=== PATIENT | female | born 1985 | race Caucasian/White ===

== ENCOUNTER 2023-09-13 05:30 | Emergency (ER) | payer MEDICAID ==
[~2023-09-13] VITALS: Ht 160 cm; Wt 75.0 kg
[2023-09-13 08:17] VITALS: BP 110/74; PULSE 71; RESP 18; TEMP 97.6; O2SAT 99
[2023-09-13] MEDS ORDERED: MELO7.5T7 PO (08:27)
[2023-09-13] MEDS: HYDROcodone-ACET 7.5/325MG TAB PO ONE (08:31)
== END 2023-09-13 09:07 | disposition home or self-care (01) ==
LOC: ER 05:30
DX: M19.011 Primary osteoarthritis, right shoulder (principal); M77.8 Other enthesopathies, not elsewhere classified
CPT/HCPCS: 73030

== ENCOUNTER 2024-06-07 16:08 | Emergency (ER) | payer MEDICAID ==
[~2024-06-07] VITALS: Ht 162.6 cm; Wt 77.3 kg
[~2024-06-07 16:08] MED LIST: MELO7.5T7 PO
--- NOTE | 2024-06-07 16:38 | ED.PDOC ---
Musculoskeletal HPI Comments 38 year old female presents to the ED with a chief complaint of RT thigh pain onset 1 week. Patient states she was playing sports, believes she pulled groin muscle, has been experiencing pain since, worsen with movement. Patient was seen at [place] 1 week ago, was prescribed Motrin, was told to apply hot compressions, with no improvement of symptoms. Denies any PMHx as well as chest pain, LOC, shortness of breath, dizziness, nausea, vomiting, diarrhea, numbness/tingling of extremities. No other symptoms or modifying factors present at this time. Time Seen by MD: 16:18 Primary Care Provider: FROY Siu Notes: Medications, Allergies Allergies: Coded Allergies: NO KNOWN ALLERGIES (Unverified , 11/10/10) Home Meds Active Scripts Meloxicam (Meloxicam) 7.5 Mg Tab, 1 TAB PO DAILYP PRN for 30 Days, #30 TAB 0 Refills Prov:PIERRE GAO Rc YOUNG 09/13/23 Information Source: Patient Mode of Arrival: Ambulatory Location: Right Extremity Location: Thigh Timing: Weeks Prehospital treatment: Pain Meds (motrin) Severity: Moderate Able to Move Extremity: Yes Pain: Moderate Mechanism: Spontaneous Circumstances: Sporting Onset of Symptoms: After Trauma Symptoms: Pain DVT Risk Factors: NONE Associated signs and symptoms: Thigh pain (RT) Past Medical History PAST MEDICAL HISTORY: Denies Surgical History: Denies all surgeries BALLISTICS PROFESSOR History: No Pertinent BALLISTICS PROFESSOR History Family History Family History: Reviewed,noncontributory to illness Social History Smoker: Non-Smoker Alcohol: Denies ETOH Use Drugs: Denies Drug Use Lives In: Home Constitutional: denies: chills, diaphoresis, fatigue, fever, malaise, sweats, weakness, others EENTM: denies: blurred vision, double vision, ear bleeding, ear discharge, ear drainage, ear pain, ear ringing, eye pain, eye redness, hearing loss, mouth pain, mouth swelling, nasal discharge, nose bleeding, nose congestion, nose pain, photophobia, tearing, throat pain, throat swelling, voice changes, others Respiratory: denies: cough, hemoptysis, orthopnea, SOB at rest, shortness of breath, SOB with excertion, stridor, wheezing, others Cardiovascular: denies: chest pain, dizzy spells, diaphoresis, Dyspnea on exertion, edema, irregular heart beat, left arm pain, lightheadedness, palpitations, PND, syncope, others Gastrointestinal: denies: abdomen distended, abdominal pain, blood streaked bowels, constipated, diarrhea, dysphagia, difficulty swallowing, hematemesis, melena, nausea, poor appetite, poor fluid intake, rectal bleeding, rectal pain, vomiting, others Genitourinary: denies: abnormal vagina bleeding, burning, dyspareunia, dysuria, flank pain, frequency, hematuria, incontinence, pain, , vagina discharge, urgency, others Neurological: denies: dizziness, fainting, headache, left sided numbness, left sided weakness, numbness, paresthesia, pre-existing deficit, right sided numbness, right sided weakness, seizure, speech problems, tingling, tremors, weakness, others Musculoskeletal: reports: others (RT thigh pain); denies: back pain, gout, joint pain, joint swelling, muscle pain, muscle stiffness, neck pain Integumetry: denies: bruises, change in color, change in hair/nails, dryness, laceration, lesions, lumps, rash, wounds, others Allergic/Immunocompromised: denies: Difficulty Healing, Frequent Infections, Hives, Itching, others Hematologic/Lymphatic: denies: anemia, blood clots, easy bleeding, easy bruising, swollen glands, others Endocrine: denies: excessive hunger, excessive sweating, excessive thirst, excessive urination, flushing, intolerance to cold, intolerance to heat, unexplained weight gain, unexplained weight loss, others Psychiatric: denies: anxiety, bipolar disorder, depression, hopeless, panic disorder, schizophrenia, sleepless, suicidal, others All Other Systems: Reviewed and Negative Physical Exam General Appearance: No Apparent Distress, Normal HEENT: Normal ENT Inspection, Pharynx Normal, TMs Normal Neck: Full Range of Motion, Non-Tender, Normal, Normal Inspection Respiratory: Chest Non-Tender, Lungs Clear, No Accessory Muscle Use, No Respiratory Distress, Normal Breath Sounds Cardiovascular: No Edema, No JVD, No Murmur, No Gallop, Normal Peripheral Pulses, Regular Rate/Rhythm Breast Exam: Deferred Gastrointestinal: No Organomegaly, Non Tender, No Pulsatile Mass, Normal Bowel Sounds, Soft Genitalia: Deferred Pelvic: Deferred Rectal: Deferred Extremities: No calf tenderness, Normal capillary refill, No pedal edema, Tender (RT thigh, able to ambulate ) Musculoskeletal : Apperance: Normal Neurologic: Alert, tire retreader II-XII nml as Tested, No Motor Deficits, Normal Affect, Normal Mood, No Sensory Deficits Cerebellar Function: Normal Reflexes: Normal Skin: Dry, Normal Color, Warm Lymphatic: No Adenopathy Was a procedure done? Was a procedure done?: No Differential Diagnosis EXT Differential Diagnosis: Deep Vein Thrombosis, Compartment Syndrome, Fracture, Dislocation X-Ray, Labs, Meds, VS Vital Signs Date Time Temp Pulse Resp B/P (MAP) Pulse Ox O2 Delivery O2 Flow Rate FiO2 06/07/24 16:15 97.5 77 18 119/76 (90) 99 97.5 X-Ray, Labs, Meds, VS Comment Imaging: X-rays and CT scans were reviewed and interpreted by this provider, imaging shows no fractures and no pathological disease. Pending radiology rev iew. Laboratory: Labs reviewed and interpreted by this provider. No significant abnormalities noted. Patient has prior medical visits reviewed. Med reconciliation performed Vital signs reviewed Time of 1ST Reevaluation: 16:48 Reevaluation 1ST: Unchanged Patient Education/Counseling: Diagnosis, Treatment, Prognosis, Need For Follow Up (Follow up in the emergency department in the next 24-48 hours if symptoms worsen. It was advised to follow up with your primary care doctor in the next 3-4 days for further evaluation.) Family Education/Counseling: No Family Present Departure 1 Departure Time of Disposition: 16:55 Impression: Primary Impression: Strain of right groin Disposition: 01 HOME / SELF CARE / HOMELESS Condition: Fair e-Prescriptions Cyclobenzaprine Hcl (Cyclobenzaprine Hcl) 5 Mg Tab 1 TAB PO TID, #30 TAB Prov: TREVER CRAWFORD 06/07/24 Methylprednisolone (Medrol Dosepak) 4 Mg Saurabh 4 MG PO UD, #21 TAB UAD Prov: TREVER CRAWFORD 06/07/24 Discharged With: Self Critical Care Note Critical Care Time?: No Stability Stability form required: No Heart Score Heart Score: Heart Score Response (Comments) Value History N/A 0 EKG N/A 0 Age N/A 0 Risk Factors N/A 0 Troponin N/A 0 Total 0 I personally scribed for TREVER CRAWFORD ([facility]) on 06/07/24 at 16:38. Electronically submitted by Tali Bergman ([email or web address]). TREVER CRAWFORD [facility] Jun 07, 2024 16:38
[2024-06-07] MEDS ORDERED: METH4PAK PO (16:55)
[2024-06-07] MEDS ORDERED: CYCL-837 PO (16:55)
[2024-06-07 17:11] VITALS: BP 123/72; PULSE 87; RESP 16; TEMP 98.3; O2SAT 98
[2024-06-07] MEDS: methylPREDNISolone SOD SUCC 125 MG/2 ML VL IM ONE (17:14)
[2024-06-07] MEDS: KETOROLAC TROMETH 30 MG/ML 1ML VIAL IM ONE (17:15)
== END 2024-06-07 17:28 | disposition home or self-care (01) ==
LOC: ER 16:08
DX: S39.011A Strain of muscle, fascia and tendon of abdomen, initial encounter (principal); M79.651 Pain in right thigh; Z79.899 Other long term (current) drug therapy; X58.XXXA Exposure to other specified factors, initial encounter; Y93.89 Activity, other specified; Y92.89 Other specified places as the place of occurrence of the external cause; Y99.8 Other external cause status
CPT/HCPCS: 96372; 99284; J1885; J2919

== ENCOUNTER 2024-08-29 17:02 | Emergency (ER) | payer MEDICAID ==
[~2024-08-29] VITALS: Ht 160 cm; Wt 76.2 kg
[~2024-08-29 17:02] MED LIST changes: +CYCL-837 PO; +METH4PAK PO
[2024-08-29] MEDS: ONDANSETRON ODT 4 MG TAB PO ONE (17:30)
--- NOTE | 2024-08-29 17:38 | ED.PDOC ---
RICHA Concepcion HPI Comments 38 y/o F, presents to the ED for CC of urinary. Patient states, she has been experiencing symptoms of dysuria with associated vaginal pain/pressure x3days. Patient reports, symptoms commenced after having unprotected sex with previous partner x4-5days ago. Patient denies vaginal itching, vaginal discharge, increased frequency, or hematuria. No other symptoms or modifying factors present at this time. Chief Complaint: Urinary Time Seen by MD: 17:30 Primary Care Provider: FEROZ Siu notes: Nurses Notes, Medications, Allergies Allergies: Coded Allergies: NO KNOWN ALLERGIES (Unverified , 11/10/10) Home Meds Active Scripts Cyclobenzaprine Hcl (Cyclobenzaprine Hcl) 5 Mg Tab, 1 TAB PO TID, #30 TAB Prov:TREVER CRAWFORD PERFORMANCE REPORTER //25 Methylprednisolone (Medrol Dosepak) 4 Mg Saurabh, 4 MG PO UD, #21 TAB UAD Prov:TREVER CRAWFORD PERFORMANCE REPORTER //25 Meloxicam (Meloxicam) 7.5 Mg Tab, 1 TAB PO DAILYP PRN for 30 Days, #30 TAB 0 Refills Prov:PIERRE GAO NP 09/13/23 Information Source: Patient Mode of Arrival: Ambulatory Severity: Moderate Timing: Days Duration: Since onset Prehospital treatment: None Onset: Following sexual contact Symptoms: Dysuria History of: None Modifying factors: None associated signs and symptoms: Dysuria Past Medical History PAST MEDICAL HISTORY: Denies Surgical History: Denies all surgeries RECEIVING TELLER History: No Pertinent RECEIVING TELLER History Family History Family History: Reviewed,noncontributory to illness Social History Smoker: Non-Smoker Alcohol: Denies ETOH Use Drugs: Denies Drug Use Lives In: Home Constitutional: denies: chills, diaphoresis, fatigue, fever, malaise, sweats, weakness, others EENTM: denies: blurred vision, double vision, ear bleeding, ear discharge, ear drainage, ear pain, ear ringing, eye pain, eye redness, hearing loss, mouth pain, mouth swelling, nasal discharge, nose bleeding, nose congestion, nose pain, photophobia, tearing, throat pain, throat swelling, voice changes, others Respiratory: denies: cough, hemoptysis, orthopnea, SOB at rest, shortness of breath, SOB with excertion, stridor, wheezing, others Cardiovascular: denies: chest pain, dizzy spells, diaphoresis, Dyspnea on exertion, edema, irregular heart beat, left arm pain, lightheadedness, palpitations, PND, syncope, others Gastrointestinal: denies: abdomen distended, abdominal pain, blood streaked bowels, constipated, diarrhea, dysphagia, difficulty swallowing, hematemesis, melena, nausea, poor appetite, poor fluid intake, rectal bleeding, rectal pain, vomiting, others Genitourinary: reports: dysuria; denies: abnormal vagina bleeding, burning, dyspareunia, flank pain, frequency, hematuria, incontinence, pain, , vagina discharge, urgency, others Neurological: denies: dizziness, fainting, headache, left sided numbness, left sided weakness, numbness, paresthesia, pre-existing deficit, right sided numbness, right sided weakness, seizure, speech problems, tingling, tremors, weakness, others Musculoskeletal: denies: back pain, gout, joint pain, joint swelling, muscle pain, muscle stiffness, neck pain, others Integumetry: denies: bruises, change in color, change in hair/nails, dryness, laceration, lesions, lumps, rash, wounds, others Allergic/Immunocompromised: denies: Difficulty Healing, Frequent Infections, Hives, Itching, others Hematologic/Lymphatic: denies: anemia, blood clots, easy bleeding, easy bruising, swollen glands, others Endocrine: denies: excessive hunger, excessive sweating, excessive thirst, excessive urination, flushing, intolerance to cold, intolerance to heat, unexplained weight gain, unexplained weight loss, others Psychiatric: denies: anxiety, bipolar disorder, depression, hopeless, panic disorder, schizophrenia, sleepless, suicidal, others All Other Systems: Reviewed and Negative Physical Exam General Appearance: No Apparent Distress, Normal HEENT: Normal ENT Inspection, Pharynx Normal Neck: Full Range of Motion, Non-Tender, Normal, Normal Inspection Respiratory: Chest Non-Tender, Lungs Clear, No Accessory Muscle Use, No Respiratory Distress, Normal Breath Sounds Cardiovascular: No Edema, No Murmur, No Gallop, Normal Peripheral Pulses, Regular Rate/Rhythm Breast Exam: Deferred Gastrointestinal: No Organomegaly, Non Tender, No Pulsatile Mass, Normal Bowel Sounds, Soft Genitalia: Deferred Pelvic: Deferred Rectal: Deferred Extremities: No calf tenderness, Normal capillary refill, Normal inspection, Normal range of motion, Non-tender, No pedal edema Musculoskeletal : Apperance: Normal Neurologic: Alert, development specialist II-XII nml as Tested, No Motor Deficits, Normal Affect, Normal Mood, No Sensory Deficits Cerebellar Function: Normal Reflexes: Normal Skin: Dry, Normal Color, Warm Lymphatic: No Adenopathy Was a procedure done? Was a procedure done?: No Differential Diagnosis Kidney stone (Female): Pyelonephritis, Urinary obstruction, Urolithiasis Kidney stone (Male): N/A Penile/Scrotal: N/A Urinary Problem (Male): N/A Urinary Problem (Female): UTI, Vaginitis X-Ray, Labs, Meds, VS Vital Signs Date Time Temp Pulse Resp B/P (MAP) Pulse Ox O2 Delivery O2 Flow Rate FiO2 08/29/24 17:17 98.0 88 20 122/76 (91) 96 98.0 Lab Test 08/29/24 19:23 Range/Units Urine Color Light-yellow Yellow Urine Clarity Clear Clear Urine pH 6.0 5.0-9.0 Urine Specific Stevenson 1.023 1.001-1.035 Urine Protein Negative Negative Urine Ketones Negative Negative Urine Blood Negative Negative /uL Urine Nitrite Negative Negative Urine Bilirubin Negative Negative Urine Urobilinogen Normal Negative mg/dL Urine Leukocyte Esterase 2+ Negative /uL Urine RBC 5 0 - 4 /hpf Urine Microscopic WBC 23 H 0-5 /HPF Urine Squamous Epithelial Cells Few <5 /hpf Urine Bacteria Few H None Seen /hpf Urine Mucus Few None Seen Urine Glucose Normal Normal mg/dL X-Ray, Labs, Meds, VS Comment Imaging: X-rays and CT scans were reviewed and interpreted by this provider, imaging shows no fractures and no pathological disease. Pending radiology review. Laboratory: Labs reviewed and interpreted by this provider. No significant abnormalities noted. Patient has prior medical visits reviewed. Med reconciliation performed Vital signs reviewed Time of 1ST Reevaluation: 18:00 Reevaluation 1ST: Unchanged Patient Education/Counseling: Diagnosis, Treatment Family Education/Counseling: No Family Present SEPSIS Sepsis Screen Date sepsis recognized/suspect: Aug 29, 2024 Time Sepsis recognized/suspect: 1717 Recent Procedure: No On Antibiotic Therapy: No Respiratory Rate >20: No Heart Rate >90: No Temp<36 C (96.8 F) or >38.3 C: No SBP <90 or MAP <65 mmHG: No New Acute Mental Status Change: No Is the patient on CPAP, BIPAP,: No Vital Signs Date Time Temp Pulse Resp B/P (MAP) Pulse Ox O2 Delivery O2 Flow Rate FiO2 08/29/24 17:17 98.0 88 20 122/76 (91) 96 98.0 Departure 1 Departure Time of Disposition: 19:38 Impression: Primary Impression: Urinary tract infection Qualified Codes: N30.00 - Acute cystitis without hematuria Additional Impression: Migraine Qualified Codes: G43.901 - Migraine, unspecified, not intractable, with status migrainosus Disposition: HOME / SELF CARE / HOMELESS Condition: Fair e-Prescriptions Nitrofurantoin Monohydrate Mac (Macrobid) 100 Mg Cap 100 MG PO BID for 7 Days, #14 CAP Prov: CRAWFORDCHRISTOPHER E PERFORMANCE REPORTER 08/29/24 Discharged With: Self Critical Care Note Critical Care Time?: No Stability Stability form required: No Heart Score Heart Score: Heart Score Response (Comments) Value History N/A 0 EKG N/A 0 Age N/A 0 Risk Factors N/A 0 Troponin N/A 0 Total 0 I personally scribed for CRAWFORD,CHRISTOPHER E PERFORMANCE REPORTER ([email or web address]) on 08/29/24 at 17:38. Electronically submitted by Isabella Hare ([employer]). I personally scribed for CRAWFORD,CHRISTOPHER E PERFORMANCE REPORTER ([email or web address]) on 08/29/24 at 17:40. Electronically submitted by Isabella Hare ([employer]). I personally scribed for CRAWFORD,CHRISTOPHER E PERFORMANCE REPORTER ([email or web address]) on 08/29/24 at 17:46. Electronically submitted by Isabella Hare ([employer]). CRAWFORD,CHRISTOPHER E PERFORMANCE REPORTER Aug 29, 2024 17:38
[2024-08-29 19:31] LABS: Urine Bacteria FEW /hpf (None Seen); Urine Blood Negative /uL (Negative); Urine Clarity Clear (Clear); Urine Color Light-Yellow (Yellow); Urine Mucus FEW (None Seen); Urine Protein, UAD Negative (Negative); Urine Specific Gravity 1.023 (1.001-1.035); Urine Squamous Epithelial Cell FEW /hpf (<5); Urine Urobilinogen Normal (Negative); Urine WBC 23 /HPF (0-5)
[2024-08-29] MEDS ORDERED: NITR-87 PO (19:39)
[2024-08-29 19:56] VITALS: BP 132/87; PULSE 83; RESP 16; TEMP 98; O2SAT 97
[2024-08-29] MEDS: KETOROLAC TROMETH 30 MG/ML 1ML VIAL IM ONE (20:06)
== END 2024-08-29 20:11 | disposition home or self-care (01) ==
LOC: ER 17:02
DX: N39.0 Urinary tract infection, site not specified (principal); G43.901 Migraine, unspecified, not intractable, with status migrainosus; Z79.899 Other long term (current) drug therapy
CPT/HCPCS: 81001; 96372; 99283; J1885; Q0162